=== PATIENT | female | born 1990 | race Caucasian/White ===

== ENCOUNTER 2018-07-26 18:25 | Emergency (ER) | payer BC ==
[2018-07-26] MEDS ORDERED: ALUMINUM/MAGNESIUM 30 ML SUS PO ONE (18:51)
[2018-07-26] MEDS ORDERED: LIDOCAINE HCL 2% (VISCOUS) 20 ML SOL MT ONE (18:53)
[2018-07-26] MEDS ORDERED: ASPIRIN 81 MG CHEWABLE CTB PO ONE (18:56)
[2018-07-26] MEDS ORDERED: LIDOCAINE HCL 2% (VISCOUS) 20 ML SOL ONE (18:56)
[2018-07-26] MEDS ORDERED: ALUMINUM/MAGNESIUM 30 ML SUS ONE (18:56)
[2018-07-26] MEDS ORDERED: ASPIRIN 81 MG CHEWABLE CTB ONE (19:01)
[2018-07-26 19:04] LABS: BASOPHILS % (AUTO) 1 % (0-3); EOSINOPHILS % (AUTO) 1 % (0-9); HEMATOCRIT 40 % (35-47); HEMOGLOBIN 12.9 gm/dl (12.0-15.5); LYMPHOCYTES % (AUTO) 32.7 % (10-50); MEAN CORPUSCULAR HEMOGLOBIN 27.4 pg (27.0-32.0); MEAN CORPUSCULAR HGB CONC 32.2 gm/dl (32.0-36.0); MEAN CORPUSCULAR VOLUME 85 fL (81-99); MONOCYTES % (AUTO) 12.3 % (0-12); NEUTROPHILS % (AUTO) 52.7 % (37-80)
[2018-07-26] MEDS ORDERED: KETOROLAC TROMETHAMINE 30 MG/ML SOL IV ONE (19:07)
[2018-07-26 19:18] LABS: ALBUMIN 3.8 gm/dl (3.4-5.0); BILIRUBIN,TOTAL 0.4 mg/dl (0.2-1.0); CALCIUM 8.8 mg/dl (8.5-10.1); CARBON DIOXIDE 26.5 mEq/L (21-32); CREATININE 0.74 mg/dl (0.60-1.00); POTASSIUM 3.6 mMol/L (3.5-5.1); TOTAL PROTEIN 7.9 gm/dl (6.4-8.2)
[2018-07-26] MEDS ORDERED: KETOROLAC TROMETHAMINE 30 MG/ML SOL ONE (19:30)
[2018-07-26] MEDS ORDERED: ACETAMINOPHEN 325 MG PO ONE (20:32)
[2018-07-26] MEDS ORDERED: ACETAMINOPHEN 325 MG ONE (20:34)
[2018-07-26 21:48] VITALS: PULSE 91
[2018-07-26 21:49] VITALS: BP 121/86; RESP 22; TEMP 98.5; O2SAT 100
== END 2018-07-26 20:45 | disposition home or self-care (01) ==
LOC: ED 18:25
DX: M94.0 Chondrocostal junction syndrome [Tietze] (principal)
CPT/HCPCS: 71045; 80053; 84703; 85025; 85378; 93005; 96374; 99283; 99284; J1885; A9270-GY

== ENCOUNTER 2018-08-01 12:43 | Emergency (ER) | payer BC ==
[2018-08-01] MEDS ORDERED: LORAZEPAM 0.5 MG TAB PO ONE (13:25)
[2018-08-01] MEDS ORDERED: LORAZEPAM 0.5 MG TAB ONE (13:45)
[2018-08-01 13:55] LABS: BASOPHILS % (AUTO) 1 % (0-3); EOSINOPHILS % (AUTO) 1 % (0-9); HEMATOCRIT 36 % (35-47); HEMOGLOBIN 11.6 gm/dl (12.0-15.5); LYMPHOCYTES % (AUTO) 16.2 % (10-50); MEAN CORPUSCULAR HEMOGLOBIN 27.8 pg (27.0-32.0); MEAN CORPUSCULAR HGB CONC 32.1 gm/dl (32.0-36.0); MEAN CORPUSCULAR VOLUME 87 fL (81-99); MONOCYTES % (AUTO) 10.3 % (0-12); NEUTROPHILS % (AUTO) 71.9 % (37-80)
[2018-08-01 14:13] LABS: ALBUMIN 3.4 gm/dl (3.4-5.0); ALKALINE PHOSPHATASE 53 IU/L (46-116); ALT 24 IU/L (14-63); AST 16 IU/L (15-37); BILIRUBIN,TOTAL 0.4 mg/dl (0.2-1.0); BLOOD UREA NITROGEN 14 mg/dl (7-18); CALCIUM 8.4 mg/dl (8.5-10.1); CARBON DIOXIDE 25.7 mEq/L (21-32); CHLORIDE 104 mMol/L (98-107); CREATININE 0.73 mg/dl (0.60-1.00); GLUCOSE 86 mg/dl (74-106); SODIUM 137 mMol/L (136-145); TOTAL PROTEIN 7.3 gm/dl (6.4-8.2); TROP I < 0.017 ng/ml (0.000-0.056)
[2018-08-01 15:05] VITALS: TEMP 98.4
[2018-08-01 15:14] VITALS: BP 117/79; PULSE 89; RESP 22; O2SAT 99
== END 2018-08-01 14:48 | disposition home or self-care (01) ==
LOC: ED 12:43
DX: F41.9 Anxiety disorder, unspecified (principal)
CPT/HCPCS: 36415; 71045; 80053; 84484; 85025; 93005; 99283; A9270-GY